=== PATIENT | female | born 1955 | race Caucasian/White ===

== ENCOUNTER 2020-10-30 15:56 | Emergency (ER) | payer OTHER, SELFPAY ==
--- NOTE | ~2020-10-30 | XR_ITS ---
EXAMINATION: XR foot RT min 3V DATE: 10/30/2020 16:54 INDICATION: Right foot pain TECHNIQUE: Dorsoplantar, lateral, and 2 oblique views of the right foot were obtained. COMPARISON: None. FINDINGS: There is heterotopic ossification projecting lateral to the cuboid. Bone alignment is nii l. There is mild osteoarthritis at the first metatarsophalangeal joint and in several interphalangeal joints. Dorsal soft tissue swelling is noted over the distal fifth metatarsals. IMPRESSION: 1. Heterotopic ossification projecting lateral to the cuboid which could reflect an avulsion injury. Recommend clinical correlation for tenderness at this site. Reviewed, dictated and finalized at location A. IMPRESSION: 1. Heterotopic ossification projecting lateral to the cuboid which could reflec t an avulsion injury. Recommend clinical correlation for tenderness at this sit e.
[2020-10-30 16:07] VITALS: BP 147/75; PULSE 81; RESP 16; TEMP 36.6; O2SAT 98
--- NOTE | 2020-10-30 16:35 | ED.GENADULT ---
HPI - General Adult General Chief complaint: Extremity Injury, Lower Stated complaint: R FOOT PAIN Time Seen by Provider: 10/30/20 16:35 Source: patient and RN notes reviewed Mode of arrival: ambulatory Limitations: no limitations History of Present Illness HPI narrative: 65-year-old female presents with complaints of right foot pain for the past 14 days. Gabbi reports increasing symptoms with swelling for the past 72 hours. Diclofenac initially without relief no other treatment. No known injury. Hurts to bear weight. No radiation of pain. No numbness, tingling, or loss of mobility. Exacerbating factor applying weight. Denies inability to bear weight. Denies discoloration. Denies suspect foreign body. Denies fever. LMP hysterectomy. The patient reports she have not been diagnosed with COVID-19. The patient reports she is not waiting for the results of a COVID-19 lab test. The patient reports she do not have chills, weakness, or fatigue. The patient reports she do not have a new or worsening cough or shortness of breath. Denies chest pain. The patient reports she do not have any rhinorrhea, congestion, sore throat, loss of taste or smell, nausea, vomiting, abdominal pain, and diarrhea. Tolerating po intake well. Denies recent traveling. Denies concerns for COVID-19 or exposures been home with limited outdoor exposure except for essential household needs, work, and return home. At this time, patient is not suspected of having COVID-19. Some parts of this dictation were generated by voice recognition software and may contain typographical and/or grammatical inaccuracies. Related Data Allergies Allergy/AdvReac Type Severity Reaction Status Date / Time No Known Allergies Allergy Unverified 07/18/19 08:39 Review of Systems Review of Systems: Narrative: CONSTITUTIONAL: Denies fever, chills, sweats. EYES: Denies visual changes, redness, discharge. ENT: Denies rhinorrhea, congestion, sore throat, otalgia. CARDIOVASCULAR: Denies chest pain, palpitations, edema. RESPIRATORY: Denies dyspnea, wheezing, cough. GASTROINTESTINAL: Denies abdominal pain, nausea, vomiting, diarrhea. SKIN: Denies rash or itching. MUSCULOSKELETAL: Denies acute back pain or myalgia. Complains of pain and swelling to right foot. NEUROLOGIC: Denies numbness or focal weakness. PSYCHIATRIC: Denies anxiety or depression. All other systems reviewed are negative, except as documented in HPI and below. [facility] Past Medical History Medical History (Updated 10/31/20 @ 00:00 by Tian Snow) Photodermatitis Surgical History Surgical History (Updated 10/30/20 @ 16:51 by CAMI Luis) History of cholecystectomy History of colonoscopy History of dilation and curettage History of hysterectomy History of tonsillectomy Family History Family History (Updated 10/30/20 @ 16:46 by CAMI Luis) Sibling Diabetes mellitus Father Cerebrovascular accident Mother Dementia Social History Social History (Updated 10/30/20 @ 16:48 by CAMI Luis) Smoking packs per day: 5 Smoking cigarettes per day: 100.0 Years smoked: 2 Smoking pack-years: 10.00 Smoking status: Current every day smoker Tobacco type: cigarettes Second hand tobacco smoke exposure: No Additional smoking assessment comments: 07/27/13-last time Gabbi stop smoking, smoked intermittently for 20 years Alcohol intake: current Substance use: never Substance use type: does not use Gender identity (if verbalized by the patient): Female Comments At time of signature, agree with nurse past medical, surgical, social, and family history. There is no relevant family history pertinent to the presenting complaint. Exam Narrative: Exam Narrative: GENERAL: This is a well-nourished, well-developed patient, in no apparent distress. Ambulates with a limp favoring right lower extremity. HEAD: Normocephalic, atraumatic.
== END 2020-10-30 17:29 | disposition home or self-care (01) ==
PROVIDERS: Emergency Provider Nurse Practitioner Family
DX: S92.901A Unspecified fracture of right foot, initial encounter for closed fracture (principal); X58.XXXA Exposure to other specified factors, initial encounter; F17.210 Nicotine dependence, cigarettes, uncomplicated
CPT/HCPCS: 73630; 99214; G0463

== ENCOUNTER → 2021-02-09 09:13 | Outpatient (CLI) | payer OTHER, SELFPAY ==
--- NOTE | ~2021-02-09 | DEXA_ITS ---
Bone Density Report Name: Gabbi Gould Age: 65 Sex: Female Ethnicity: White Date of : 1955 Indication: postmenopausal; screening for osteoporosis; parental hip fracture; history of glucocorticoids; hysterectomy; Referring Provider: ERNIE CROCKER Study: Bone densitometry was performed. Exam Date: February 09, 2021 Accession number: [id number] Bone Density: Region BMD T-score Z-score Classification AP Spine (L1-L4) 0.850 -1.8 0.0 Osteopenia Femoral Neck (Left) 0.484 -3.3 -1.8 Osteoporosis Total Hip (Left) 0.585 -2.9 -1.7 Osteoporosis Femoral Neck (Right) 0.484 -3.3 -1.8 Osteoporosis Total Hip (Right) 0.568 -3.1 -1.8 Osteoporosis Total Hip Mean 0.577 -3.0 -1.8 Osteoporosis World Health Organization criteria for BMD impression classify patients as: Normal (T-score at or above -1.0), Osteopenia (T-score between -1.0 and -2.5), or Osteoporosis (T-score at or below -2.5). 10-year Fracture Risk: FRAX not reported because: Some T-score for Spine Total or Hip Total or Femoral Neck at or below -2.5 Clinical Information Provided by Patient: Parent has had a hip fracture Smokes Has taken Glucocorticoids Has the following medical conditions: Hysterectomy Patient maximum height was 66 Menopause Age: 36 No regular weight bearing exercise Does not regularly consume dairy products Drinks caffeinated beverages Onset of menses at age 15 Number of children 1 Impression: The patient has osteoporosis, based on the Left Femoral Neck T-score. The patient has risk factors, including: parental hip fracture, smoking, history of glucocorticoid therapy. Discussion: INCREASED RISK OF FRACTURE. BONE DENSITY IS UNDESIRABLY LOW AT ONE OR MORE SKELETAL SITES, CONSISTENT WITH POSTMENOPAUSAL OSTEOPOROSIS. This patient's lowest T-score meets the World Health Organization's (WHO) criteria for osteoporosis at one or more sites (T-score -2.5 or below). In untreated patients, the risk of osteoporotic fracture increases approximately two-fold for each 1.0 SD decrease in T-score. Low bone density is not the only risk factor for fracture; also consider factors such as patient's age, frailty or poor health, risk of falling, risk of injury, previous osteoporotic fracture, family history of osteoporosis, cigarette smoking, low body weight, etc. Not everyone with low bone mineral density has osteoporosis; osteomalacia and other metabolic bone disorders should also be considered. Patients who have osteoporosis should be evaluated for specific diseases and conditions (secondary causes) that may cause or contribute to bone loss. The [place] Association of Clinical Endocrinologists (AACE) and National Osteoporosis Foundation (NOF) recommend pharmacologic intervention for all postmenopausal women whose T-score is in this range. The patient should foll
--- NOTE | ~2021-02-09 | MM_ITS ---
EXAMINATION: MM screening kerry BI w tracey HISTORY: Screening TECHNIQUE: Craniocaudal and mediolateral oblique 3-D tomosynthesis images were obtained and synthetic 2-D images were generated. CAD analysis was submitted and interpreted. COMPARISON: No prior mammogram is available for comparison at this institution. BREAST PARENCHYMAL COMPOSITION: There are scattered areas of fibroglandular density. FINDINGS: There are asymmetries in the upper outer quadrant of the left breast. There are no suspicio us masses, calcifications or architectural distortion in the right breast to suggest malignancy. IMPRESSION: 1. Left breast asymmetries. 2. Additional mammographic views and possible breast ultrasound are recommended. BI-RADS Category 0: Incomplete: Needs additional imaging evaluation. Reviewed, dictated and finalized at location A. IMPRESSION: 1. Left breast asymmetries. 2. Additional mammographic views and possible breast ultrasound are recommended . BI-RADS Category 0: Incomplete: Needs additional imaging evaluation.
== END ==
PROVIDERS: PCP Family Medicine; Visit Provider Obstetrics & Gynecology
DX: Z12.31 Encounter for screening mammogram for malignant neoplasm of breast (principal); Z13.820 Encounter for screening for osteoporosis; R92.8 Other abnormal and inconclusive findings on diagnostic imaging of breast; Z78.0 Asymptomatic menopausal state; M85.88 Other specified disorders of bone density and structure, other site; M81.0 Age-related osteoporosis without current pathological fracture
CPT/HCPCS: 77063; 77067; 77080

== ENCOUNTER 2021-03-08 11:37 | Emergency (ER) | payer MEDICARE, OTHER, SELFPAY ==
--- NOTE | 2021-03-08 11:41 | ED.HEATRA ---
HPI - Head Injury General Chief complaint: Head Injury Stated complaint: head laceration/head injury Time Seen by Provider: 03/08/21 11:41 Source: patient and RN notes reviewed History of Present Illness HPI Narrative: Patient is a 65-year-old female who presents the urgent care with her granddaughter with complaints of a head injury. Patient states that she was out doing some yard work and tripped over a decorative yard piece falling on the right side of her forehead and right eye. Patient states that happened just directly prior to arrival and denies of any loss of consciousness, nausea, vomiting, headache. Patient denies any vision changes. Denies of any use of [id number] medication prior to arrival. Patient is not on a blood thinner and does not have any medical history. No other acute complaints. No acute distress noted. Patient aware of the plan of care. Some parts of this dictation were generated by voice recognition software and may contain typographical and/or grammatical inaccuracies. Related Data Home Medications Medication Instructions Recorded Confirmed ergocalciferol (vitamin D2) 1,250 mcg PO DAILY 03/08/21 03/08/21 Allergies Allergy/AdvReac Type Severity Reaction Status Date / Time No Known Allergies Allergy Verified 03/08/21 11:49 Review of Systems Review of Systems: CONSTITUTIONAL: Denies fever, chills, or sweats. EYES: Denies visual changes, redness, or discharge. ENT: Denies rhinorrhea, congestion, sore throat, or otalgia. CARDIOVASCULAR: Denies chest pain, palpitations, or edema. RESPIRATORY: Denies cough or dyspnea. GASTROINTESTINAL: Denies abdominal pain, nausea, vomiting, or diarrhea. GENITOURINARY: Denies dysuria or hematuria. SKIN: Reports of a laceration to the right forehead, abrasions to the right face, and abrasions to the right knee MUSCULOSKELETAL: Denies back pain, joint pain, or myalgia. NEUROLOGIC: Denies headache, numbness, or weakness. All other systems reviewed are negative, except as documented in HPI. [facility] Past Medical History Medical History (Updated 03/08/21 @ 12:12 by CAMI Esposito) Photodermatitis Surgical History Surgical History History of cholecystectomy History of colonoscopy History of dilation and curettage History of hysterectomy History of tonsillectomy Family History Family History Sibling Diabetes mellitus Father Cerebrovascular accident Mother Dementia Social History Social History Smoking packs per day: 5 Smoking cigarettes per day: 100.0 Years smoked: 2 Smoking pack-years: 10.00 Smoking status: Current every day smoker Tobacco type: cigarettes Second hand tobacco smoke exposure: No Additional smoking assessment comments: 07/27/13-last time Gabbi stop smoking, smoked intermittently for 20 years Alcohol intake: current Alcohol use details: On occasion. 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 There is no relevant family history pertinent to the patient complaint. Exam Narrative: GENERAL: This is a well-nourished, well-developed patient, in no apparent distress. HEAD: normocephalic, atraumatic. EYES: PERRL. Sclera clear/white. Vision is grossly intact. EARS: External ears normal NOSE: External nose normal with no obvious nasal discharge, nares without redness, no rhinorrhea. THROAT: Mucous membranes moist NECK: Neck supple CARDIOVASCULAR: Regular rate and rhythm without murmurs, gallops, or rubs. RESPIRATORY: Clear to auscultation. Breath sounds equal bilaterally. N
[2021-03-08 11:54] VITALS: BP 154/80; PULSE 74; RESP 16; TEMP 36.2; O2SAT 100
== END 2021-03-08 12:30 | disposition home or self-care (01) ==
PROVIDERS: Emergency Provider Nurse Practitioner Family; PCP Family Medicine
DX: S09.90XA Unspecified injury of head, initial encounter (principal); S01.81XA Laceration without foreign body of other part of head, initial encounter; W18.09XA Striking against other object with subsequent fall, initial encounter; F17.210 Nicotine dependence, cigarettes, uncomplicated
CPT/HCPCS: 12011; 99213; G0463

== ENCOUNTER → 2021-03-14 07:41 | Outpatient (CLI) | payer MEDICARE, OTHER, SELFPAY ==
--- NOTE | ~2021-03-14 | MMUS_ITS ---
EXAMINATION: MM diagnostic kerry LT w tracey, US breast LT limited HISTORY: Focal asymmetry in the upper outer quadrant of the left breast on screening mammogram TECHNIQUE: Additional 3-D tomosynthesis images of the left breast were performed and synthetic 2-D im ages were generated. CAD analysis was submitted and interpreted. High resolution limited left breast ultrasound was performed. COMPARISON: 02/09/2021 BREAST PARENCHYMAL COMPOSITION: There are scattered areas of fibroglandular density. FINDINGS: MAMMOGRAPHIC FINDINGS: There is persistent asymmetry in the middle and posterior third of the upper-outer quadrant of the br east no suspicious architectural distortion or calcification are identified. ULTRASOUND: There is no evidence of focal abnormal solid or cystic mass in the vicinity of the mammographically d etected focal asymmetry. IMPRESSION: 1. Probably benign focal asymmetry of the left breast. 2. Recommend 6 month follow-up left diagnostic mammogram with possible ultrasound. BI-RADS category 3, probably benign findings. Reviewed, dictated and finalized at location A. IMPRESSION: 1. Probably benign focal asymmetry of the left breast. 2. Recommend 6 month follow-up left diagnostic mammogram with possible ultrasou nd. BI-RADS category 3, probably benign findings.
== END ==
PROVIDERS: Visit Provider Obstetrics & Gynecology
DX: R92.8 Other abnormal and inconclusive findings on diagnostic imaging of breast (principal)
CPT/HCPCS: 76642; 77061; 77065; G0279

== ENCOUNTER → 2021-12-09 14:08 | Outpatient (CLI) | payer MEDICARE, OTHER, SELFPAY ==
--- NOTE | ~2021-12-09 | MMUS_ITS ---
EXAMINATION: MM diagnostic kerry LT w tracey, US breast LT limited HISTORY: Six month follow up for probably benign left breast asymmetries TECHNIQUE: Craniocaudal, mediolateral, and mediolateral oblique 3-D tomosynthesis images of the left breast were performed and synthetic 2-D images were generated. CAD analysis was submitted and interpr eted. High resolution limited left breast ultrasound was performed. COMPARISON: 03/14/2021, 02/09/2021 BREAST PARENCHYMAL COMPOSITION: There are scattered areas of fibroglandular density. FINDINGS: MAMMOGRAPHIC FINDINGS: Asymmetries in the middle and posterior third of the upper outer quadrant of the left breast on the c raniocaudal view persist with spot compression. There has been no suspicious interval change. No susp icious mass, calcification, or architectural distortion are identified. ULTRASOUND: There is no evidence of focal abnormal solid or cystic mass in the vicinity of the mammographic asymm etries. IMPRESSION: 1. Probably benign asymmetries of the left breast. 2. Recommend 6 month follow-up left diagnostic mammogram and ultrasound. BI-RADS category 3, probably benign findings. Reviewed, dictated and finalized at location A. IMPRESSION: 1. Probably benign asymmetries of the left breast. 2. Recommend 6 month follow-up left diagnostic mammogram and ultrasound. BI-RADS category 3, probably benign findings.
== END ==
PROVIDERS: PCP Family Medicine; Visit Provider Obstetrics & Gynecology Gynecology
DX: R92.8 Other abnormal and inconclusive findings on diagnostic imaging of breast (principal)
CPT/HCPCS: 76642; 77061; 77065; G0279

== ENCOUNTER → 2022-07-02 09:25 | Outpatient (CLI) | payer MEDICARE, OTHER, SELFPAY ==
--- NOTE | ~2022-07-02 | MM_ITS ---
EXAMINATION: MM diagnostic kerry BI w tracey HISTORY: Six-month follow-up for probably benign left breast asymmetries TECHNIQUE: Craniocaudal, mediolateral, and mediolateral oblique 3-D tomosynthesis images of the shaheen ts were performed and synthetic 2-D images were generated. CAD analysis was submitted and interpreted . COMPARISON: 12/09/2021, 03/14/2021, 02/09/2021 BREAST PARENCHYMAL COMPOSITION: There are scattered areas of fibroglandular density. FINDINGS: There are stable asymmetries in the middle and posterior third of the upper outer quadrant of the left breast on the craniocaudal view. There has been no suspicious interval change. No suspici ous mass, calcification, or architectural distortion are identified in either breast. IMPRESSION: 1. Stable, probably benign left breast asymmetries. 2. Recommend 6 month follow-up left diagnostic mammogram and possible ultrasound. BI-RADS category 3, probably benign findings. Reviewed, dictated and finalized at location A. 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 Stable, probably benign left breast asymmetries. 2. Recommend 6 month follow-up left diagnostic mammogram and possible ultrasoun d. BI-RADS category 3, probably benign findings.
== END ==
PROVIDERS: PCP Family Medicine; Visit Provider Obstetrics & Gynecology Gynecology
DX: R92.8 Other abnormal and inconclusive findings on diagnostic imaging of breast (principal)
CPT/HCPCS: 77062; 77066; G0279

== ENCOUNTER → 2022-12-10 15:05 | Outpatient (CLI) | payer MEDICARE, OTHER, SELFPAY ==
--- NOTE | ~2022-12-10 | XR_ITS ---
EXAMINATION: XR hand RT min 3V DATE: 12/10/2022 15:31 INDICATION: Pain at the right first carpal metacarpal joint when pressing down on the right first dig it. TECHNIQUE: Posteroanterior, oblique and lateral views of the right hand were obtained. COMPARISON: None. FINDINGS: Diffuse osteopenia. Alignment is normal. No fracture. Mild osteoarthritis at the first carpometacarpa l, first metacarpophalangeal and multiple interphalangeal joints. No erosions to suggest inflammatory arthritis. Soft tissues are unremarkable. IMPRESSION: 1. 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 Reviewed, dictated and finalized at location A. IMPRESSION: 1. 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
== END ==
PROVIDERS: PCP Family Medicine; Visit Provider Family Medicine
DX: M19.041 Primary osteoarthritis, right hand (principal)
CPT/HCPCS: 73130

== ENCOUNTER 2023-03-23 11:39 | Outpatient (CLI) | payer MEDICARE, OTHER, SELFPAY ==
--- NOTE | ~2023-03-23 | MM_ITS ---
EXAMINATION: MM diagnostic kerry LT w tracey HISTORY: Six-month follow-up for probably benign left breast asymmetries TECHNIQUE: Craniocaudal, mediolateral, and mediolateral oblique 3-D tomosynthesis images of the left breast were performed and synthetic 2-D images were generated. CAD analysis was submitted and interpr eted. COMPARISON: 07/02/2022, 12/09/2021, 03/14/2021, 02/09/2021 BREAST PARENCHYMAL COMPOSITION: There are scattered areas of fibroglandular density. FINDINGS: There are stable asymmetries in the middle and posterior thirds of the upper outer quadrant of the left breast on the craniocaudal view. There has been no suspicious interval change. No suspic ious mass, calcification, or architectural distortion are identified. IMPRESSION: 1. Stable left breast asymmetries, consistent with benign findings. 2. Routine screening mammography is recommended, due on the right in June. BI-RADS Category 2: Benign finding(s). Reviewed, dictated and finalized at location A.
== END 2023-03-23 11:40 ==
LOC: MICIMG 11:40
PROVIDERS: PCP Obstetrics & Gynecology Gynecology; Visit Provider Obstetrics & Gynecology Gynecology
DX: R92.8 Other abnormal and inconclusive findings on diagnostic imaging of breast (principal)
CPT/HCPCS: 77061; 77065; G0279

== ENCOUNTER → 2023-08-31 09:53 | Outpatient (CLI) | payer MEDICARE, OTHER, SELFPAY ==
--- NOTE | ~2023-08-31 | MM_ITS ---
EXAMINATION: MM screening kerry BI w tracey HISTORY: Screening mammogram, family history of breast cancer in her mother. TECHNIQUE: Craniocaudal and mediolateral oblique 3-D tomosynthesis images were obtained and synthetic 2-D images were generated. CAD analysis was submitted and interpreted. COMPARISON: 03/23/2023, 07/02/2022 BREAST PARENCHYMAL COMPOSITION: There are scattered areas of fibroglandular density. FINDINGS: Stable asymmetries are again noted in the left breast. No suspicious mass, calcification, o r architectural distortion are identified in either breast to suggest malignancy. There has been no s uspicious interval change. IMPRESSION: 1. No mammographic evidence of malignancy. 2. Recommend routine screening mammography in one year. BI-RADS Category 2: Benign finding(s). Reviewed, dictated and finalized at location A. 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
== END ==
PROVIDERS: PCP Obstetrics & Gynecology Gynecology; Visit Provider Obstetrics & Gynecology Gynecology
DX: Z12.31 Encounter for screening mammogram for malignant neoplasm of breast (principal)
CPT/HCPCS: 77063; 77067

== ENCOUNTER 2023-10-09 10:41 | Emergency (ER) | payer MEDICARE, OTHER, SELFPAY ==
--- NOTE | ~2023-10-09 | XR_ITS ---
EXAMINATION: XR ankle RT min 3V, XR foot RT min 3V DATE: 10/09/2023 11:16 INDICATION: Lateral right foot and ankle pain and swelling post fall TECHNIQUE: 1. Anteroposterior, mortise, additional oblique and lateral view of the right ankle were obtained. 2. Dorsoplantar, two oblique and lateral views of the right foot were obtained. COMPARISON: None. FINDINGS: Alignment of the right foot and ankle is normal. Subtle linear lucency consistent with nondisplaced f racture at the distal aspect of the lateral malleolus which remains below level of the tibiotalar melo nt line.. Mild osteoarthritis of the first metatarsophalangeal and a few and tarsometatarsal and inte rphalangeal joints. No ankle joint effusion. Soft tissue swelling overlying the lateral lower leg and ankle. IMPRESSION: 1. Subtle nondisplaced fracture of the lateral malleolus located below level of the joint line. Reviewed, dictated and finalized at location B. IMPRESSION: 1. Subtle nondisplaced fracture of the lateral malleolus located below level of the joint line.
[2023-10-09 10:43] VITALS: BP 146/69; PULSE 71; RESP 15; TEMP 36.6; O2SAT 100
--- NOTE | 2023-10-09 11:53 | ED.LOWEXIN ---
HPI - Extremity Injury (Lower) General Chief Complaint: Extremity Injury, Lower Stated Complaint: right foot injury Time Seen by Provider: 10/09/23 10:51 Source: patient Mode of arrival: ambulatory Limitations: no limitations History of Present Illness HPI Narrative: 68-year-old with a history of osteoporosis here with a complaint of right ankle pain and swelling. Patient states that she still up and accidentally rolled the ankle now having pain. Is able to ambulate with a limp. complaint: ankle injury Injury: Right: ankle Type of Injury: inversion Place: home Severity: moderate Relieving factors: cold therapy Exacerbating factors: nothing Associated symptoms: swelling Related Data Home Medications Medication Instructions Recorded Confirmed ergocalciferol (vitamin D2) 1,250 1,250 mcg PO DAILY 03/08/21 02/24/23 mcg (50,000 unit) capsule Allergies Allergy/AdvReac Type Severity Reaction Status Date / Time No Known Allergies Allergy Verified 10/09/23 10:45 Review of Systems Review of Systems: All systems reviewed & are unremarkable except as noted in HPI and below Constitutional: Constitutional: Reports no additional constitutional complaints Eyes: Eyes: Reports no additional eye complaints ENT: Reports system reviewed and no additional complaints, except as documented Cardiovascular: Cardiovascular: Reports no additional cardiovascular complaints Respiratory: Respiratory: Reports no additional respiratory complaints Gastrointestinal: Gastrointestinal: Reports no additional gastrointestinal complaints Musculoskeletal: Musculoskeletal: Reports as per HPI Neurologic: Reports system reviewed and no additional complaints, except as documented [facility] Past Medical History Medical History Osteoporosis Photodermatitis Radial styloid tenosynovitis Surgical History Surgical History History of cholecystectomy History of colonoscopy History of dilation and curettage History of hysterectomy History of tonsillectomy Family History Family History Sibling Diabetes mellitus Father Cerebrovascular accident Mother Dementia Social History Social History Smoking packs per day: 0.5 Smoking cigarettes per day: 10.0 Years smoked: 2 Smoking pack-years: 1.00 Smoking status: Current every day smoker (0.5 ppd since 26 yrs old but off and on ) Tobacco type: cigarettes Second hand tobacco smoke exposure: No Additional smoking assessment comments: 07/27/13-last time Gabbi stop smoking, smoked intermittently for 20 years Alcohol intake: current Alcohol use details: On occasion. 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 HEAD: Normocephalic, atraumatic. EYES: PERRLA and EOMI. NECK: Supple. CHEST: Clear to auscultation. No respiratory distress. HEART: Regular rate and rhythm. No murmur heard. Normal peripheral pulses.. EXTREMITIES: Normal range of motion. No edema. STS of the right ankle on the lateral aspect . SKIN: Warm, dry, no rash. NEUR
--- NOTE | 2023-10-20 12:19 | PC.NURSE ---
LATE ENTRY This note is being entered to document information to the patient's record. The following information was omitted on [10/09/23], by [Sarah Alatorre RN]. Correction of wound/injury site should be right foot and right ankle.
== END 2023-10-09 13:01 | disposition home or self-care (01) ==
PROVIDERS: Emergency Provider Family Medicine
DX: S82.64XA Nondisplaced fracture of lateral malleolus of right fibula, initial encounter for closed fracture (principal); M81.0 Age-related osteoporosis without current pathological fracture; F17.210 Nicotine dependence, cigarettes, uncomplicated; Z90.49 Acquired absence of other specified parts of digestive tract; Z90.710 Acquired absence of both cervix and uterus; X50.9XXA Other and unspecified overexertion or strenuous movements or postures, initial encounter
CPT/HCPCS: 29515; 73610; 73630; 99284

== ENCOUNTER 2023-10-14 13:58 | Outpatient (CLI) | payer MEDICARE, OTHER, SELFPAY ==
--- NOTE | ~2023-10-14 | DEXA_ITS ---
Bone Density Report Name: WIN RESENDEZ Age: 68 Sex: Female Ethnicity: White Date of : 1955 Indication: postmenopausal osteoporosis; monitoring treatment; parental hip fracture; history of glucocorticoids; prior fracture; hysterectomy; Referring Provider: NASREEN CARBAJAL Study: Bone densitometry was performed. Exam Date: October 14, 2023 Accession number: [id number] Bone Density: Region BMD T-score Z-score Classification AP Spine (L1-L4) 0.932 -1.0 0.9 Normal Femoral Neck (Left) 0.500 -3.1 -1.5 Osteoporosis Total Hip (Left) 0.612 -2.7 -1.3 Osteoporosis Femoral Neck (Right) 0.726 -1.1 0.5 Osteopenia Total Hip (Right) 0.622 -2.6 -1.3 Osteoporosis Total Hip Mean 0.617 -2.7 -1.3 Osteoporosis World Health Organization criteria for BMD impression classify patients as: Normal (T-score at or above -1.0), Osteopenia (T-score between -1.0 and -2.5), or Osteoporosis (T-score at or below -2.5). 10-year Fracture Risk: FRAX not reported because: Some T-score for Spine Total or Hip Total or Femoral Neck at or below -2.5 Previous Exams: Region Exam Age BMD T-score BMD Change BMD Change Date g/cm2 vs Baseline vs Previous AP Spine(L1-L4) 10/14/2023 68 0.932 -1.0 0.082* 0.082* 02/09/2021 65 0.850 -1.8 Total Hip(Left) 10/14/2023 68 0.612 -2.7 0.028* 0.028* 02/09/2021 65 0.585 -2.9 Total Hip(Right) 10/14/2023 68 0.622 -2.6 0.054* 0.054* 02/09/2021 65 0.568 -3.1 *Denotes significance at 95% confidence level, LSC for AP Spine = 0.022 g/cm2, LSC for Total Hip = 0.027 g/cm2 Clinical Information Provided by Patient: Has had a low trauma fracture Parent has had a hip fracture Smokes Has taken Glucocorticoids Is being treated for osteoporosis Has used the following medications: Prolia (i.e. denosumab), Vitamin D, Calcium, prednisone to treat skin Has the following medical conditions: Hysterectomy Patient maximum height was 66 Menopause Age: 36 Drinks caffeinated beverages Onset of menses at age 15 Number of children 1 Impression: The patient has established osteoporosis, based on the Left Femoral Neck T-score and the existence of a prior fracture. The patient has risk factors, including: parental hip fracture, smoking, previous fracture, history of glucocorticoid therapy. No significant bone loss was observed. Discussion: PATIENT UNDER TREATMENT WITH NO SIGNIFICANT BMD LOSS SINCE LAST EXAM. In
== END 2023-10-14 13:59 ==
LOC: MICIMG 14:00
DX: Z78.0 Asymptomatic menopausal state (principal); M81.0 Age-related osteoporosis without current pathological fracture; M85.851 Other specified disorders of bone density and structure, right thigh
CPT/HCPCS: 77080

== ENCOUNTER 2024-03-30 02:07 | Day surgery (SDC) | payer MEDICARE, OTHER, SELFPAY ==
[2024-03-09 13:56] VITALS: BMI 25.8
[2024-03-30 11:01] VITALS: BP 145/79; PULSE 77; RESP 20; TEMP 36.1; O2SAT 100
[2024-03-30] MEDS: LACTATED RINGERS 1,000 ML 150 ML IV CONT (11:08)
--- NOTE | 2024-03-30 11:46 | WPDANESEPPF ---
Anes - Initial Pre Proc Eval Procedure: Operation Date: 03/30/24 12:30 Proposed Procedures p Colonoscopy - Benjamin Fuller MD Date/Time: 03/30/24 11:46 Surgeon: Benjamin Fuller MD Pre Op Diagnosis: Pers. Hx. of colon polyps Patient Data Age: 69 Gender: F Height: 1.68 m Weight: 73.5 kg Last Vital Signs Temp 97 F L 03/30/24 11:01 Pulse 77 03/30/24 11:01 Resp 20 03/30/24 11:01 BP 145/79 H 03/30/24 11:01 Pulse Ox 100 03/30/24 11:01 O2 Del Method Room Air 03/30/24 11:01 Allergies Allergy/AdvReac Type Severity Reaction Status Date / Time No Known Allergies Allergy Verified 03/30/24 10:57 Home Medications Medication Instructions Recorded Confirmed Type denosumab 60 mg/mL subcutaneous 60 mg subcut [id number] #1 mL 02/17/24 03/30/24 Rx syringe (Prolia) ergocalciferol (vitamin D2) 1,250 1,250 mcg PO 2XW #14 caps 02/17/24 03/30/24 Rx mcg (50,000 unit) capsule prednisone 20 mg tablet 20 mg PO DAILY #90 tabs 02/17/24 03/30/24 Rx Patient hx anesthesia problems: none Family hx anesthesia problems: none Results Review: All pre-operative results and documents have been reviewed as part of the pre-operative evaluation. FOR[facility]LY [facility] Past Medical History Medical History H/O systemic lupus erythematosus (SLE) Osteoporosis Photodermatitis Radial styloid tenosynovitis Subacute cutaneous lupus erythematosus Surgical History Surgical History History of cholecystectomy History of colonoscopy History of hysterectomy done at age 36 History of tonsillectomy Family History Family History Sibling Diabetes mellitus Father Cerebrovascular accident Mother Dementia Social History Social History Smoking packs per day: 0.5 Smoking cigarettes per day: 10.0 Years smoked: 2 Smoking pack-years: 1.00 Smoking status: Current every day smoker Tobacco type: cigarettes Second hand tobacco smoke exposure: No Additional smoking assessment comments: 07/27/13-last time Gabbi stop smoking, smoked intermittently for 20 years Alcohol intake: current Drinks per week: 4 Alcohol use details: On occasion. 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 Gender identity (if verbalized by the patient): Female Sexual Orientation (if Verbalized by the Patient): Straight or Heterosexual Spiritual care concerns: No Agree to blood products: Yes Anes - Eval Final PreProcedure Day of Procedure 03/30/24 11:46 Patient weight: normal Heart: regular rate and rhythm Lungs: clear to auscultation Airway: Mallampati scale class II Neurological: alert and oriented Last oral intake: >/= 8 hours ASA classification: II Emergent: no Anesthetic plan: proceed Anesthesia type and monitoring: general GIVS and standard monitoring Results Review: All pre-operative results and documents have been reviewed as part of the pre-operative evaluation. Informed Consent: The patient's anesthetic plan and its attendant risks and benefits were discussed with the patient/family/POA. Questions were solicited and answers provided to the satisfaction of the patient/family/POA.
--- NOTE | 2024-03-30 12:08 | PM.HPGS ---
History of Present Illness History of Present Illness Consent: Risks, benefits, and alternatives have been discussed and questions answered. Patient agrees to proceed with procedure. Chief complaint: Pers. Hx. of colon polyps Narrative: Gabbi Gould is a 69 year old female with colon polyp 7 years ago Review of Systems Review of Systems: All systems reviewed & are unremarkable except as noted in HPI and below PMFSH Past Medical History Medical History (Updated 03/30/24 @ 12:08 by Benjamin Fuller MD) Colon polyp H/O systemic lupus erythematosus (SLE) Osteoporosis Photodermatitis Radial styloid tenosynovitis Subacute cutaneous lupus erythematosus Surgical History Surgical History History of cholecystectomy History of colonoscopy History of hysterectomy done at age 36 History of tonsillectomy Family History Family History Sibling Diabetes mellitus Father Cerebrovascular accident Mother Dementia Social History Social History Smoking packs per day: 0.5 Smoking cigarettes per day: 10.0 Years smoked: 2 Smoking pack-years: 1.00 Smoking status: Current every day smoker Tobacco type: cigarettes Second hand tobacco smoke exposure: No Additional smoking assessment comments: 07/27/13-last time Gabbi stop smoking, smoked intermittently for 20 years Alcohol intake: current Drinks per week: 4 Alcohol use details: On occasion. 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 Gender identity (if verbalized by the patient): Female Sexual Orientation (if Verbalized by the Patient): Straight or Heterosexual Spiritual care concerns: No Agree to blood products: Yes Meds Home Medications and Allergies Home Medications Medication Instructions Recorded Confirmed Type denosumab 60 mg/mL subcutaneous 60 mg subcut [id number] #1 mL 02/17/24 03/30/24 Rx syringe (Prolia) ergocalciferol (vitamin D2) 1,250 1,250 mcg PO 2XW #14 caps 02/17/24 03/30/24 Rx mcg (50,000 unit) capsule prednisone 20 mg tablet 20 mg PO DAILY #90 tabs 02/17/24 03/30/24 Rx Allergies Allergy/AdvReac Type Severity Reaction Status Date / Time No Known Allergies Allergy Verified 03/30/24 10:57 Vital Signs Vital Signs - 24 hr 03/30/24 11:01 Temperature 97 F L Pulse Rate 77 Respiratory Rate 20 Blood Pressure 145/79 H Pulse Oximetry 100 Oxygen Delivery Room Air Exam Const: General: comfortable and no acute distress HENMT: Face/Nose/Sinus: Normal nares present Eyes: General: appearance normal, both eyes and all related structures Neck: Neck: no JVD Resp: Auscultation: clear to auscultation bilaterally Cardio: Rate: regular rate Rhythm: regular rhythm GI: Inspection: non-distended GI Palp: Yes Soft to palpation Skin: General skin exam: normal color Neuro: General: gait normal Speech: normal speech Extrem: General: normal to inspection Psych: Mental Status: mental status grossly normal Assessment and Plan Assessment and plan (1) Colon polyp: Code(s): K63.5 - Polyp of colon Status: Acute Assessment and Plan: colonoscopy
[2024-03-30 12:24] VITALS: BP 117/98; PULSE 68; RESP 18; O2SAT 96
[2024-03-30 12:34] VITALS: BP 133/61; PULSE 60; RESP 16; O2SAT 100
[2024-03-30 12:44] VITALS: BP 130/60; PULSE 62; RESP 20; O2SAT 100
== END 2024-03-30 12:50 | disposition home or self-care (01) ==
PROVIDERS: PCP Family Medicine; Referring Provider Nurse Practitioner Women's Health; Visit Provider Internal Medicine Gastroenterology
PROC: 0DJD8ZZ Inspection of Lower Intestinal Tract, Via Natural or Artificial Opening Endoscopic (ICD-10-PCS; CPT 45378; principal; 2024-03-30 12:30)
DX: Z12.11 Encounter for screening for malignant neoplasm of colon (principal); D12.3 Benign neoplasm of transverse colon; K57.30 Diverticulosis of large intestine without perforation or abscess without bleeding; M32.9 Systemic lupus erythematosus, unspecified; M81.0 Age-related osteoporosis without current pathological fracture; F17.210 Nicotine dependence, cigarettes, uncomplicated; Z79.620 Long term (current) use of immunosuppressive biologic
CPT/HCPCS: 45385; 88305; J2704; J7120